=== PATIENT | male | born 1985 | race Caucasian/White ===

== ENCOUNTER 2023-03-29 21:22 | Emergency (ER) | payer OTHER ==
[~2023-03-29] VITALS: Ht 175.3 cm; Wt 74.8 kg
[2023-03-29 21:32] VITALS: BP 132/102
[2023-03-29] MEDS ORDERED: AMOCLA875 PO (22:06)
== END 2023-03-29 22:14 | disposition home or self-care (01) ==
LOC: ER 21:22
DX: K04.7 Periapical abscess without sinus (principal)
CPT/HCPCS: A9270